=== PATIENT | female | born 1970 | race Two or more races ===

== ENCOUNTER 2017-08-28 14:17 | Emergency (ER) | payer MEDICAID ==
[~2017-08-28] VITALS: Ht 162.6 cm; Wt 77.1 kg
[2017-08-28 14:35] VITALS: BP 128/66
[2017-08-28] MEDS ORDERED: Meclizine 25mg tab ORAL PRN (14:45)
--- NOTE | 2017-08-28 16:25 | Emergency Room Report ---
History of Present Illness General Chief Complaint: Vomiting Source: EMS Present Illness HPI 47-year-old female presents to the emergency department complaining of dizziness she describes it as the room spinning around her and causing her to throw up and feel nauseous. Patient denies unilateral weakness, fatigue she reports past medical history of hypothyroid as well as autoimmune liver disease. Patient denies abdominal pain or tenderness. She reports that if she lays back down her symptoms return. Sitting up in 1 position helps to relieve her symptoms however she states she does feel nauseous. Patient has been having nausea vomiting since yesterday she denies diarrhea or constipation. She denies fevers, chills, trauma or fall. Patient denies neck pain or stiffness. Denies CP, Palpitations, LOC, AMS, Changes in Vision, paresthesias, or a sudden severe headache. Allergies: Coded Allergies: No Known Allergies (Unverified , 08/28/17) Patient History Past Medical History: see triage record, other - thyroid disorder, Past Surgical History: none Pertinent Family History: none Now: No Reviewed Nursing Documentation: PMH: Agreed; PSxH: Agreed Nursing Documentation-PMH Past Medical History: No Stated History Review of Systems All Other Systems: negative except mentioned in HPI Physical Exam Vital Signs Date Time Temp Pulse Resp B/P (MAP) Pulse Ox O2 Delivery O2 Flow Rate FiO2 08/28/17 14:13 97.2 80 18 128/66 98 Room Air 97.2 Sp02 EP Interpretation: reviewed, normal General Appearance: no apparent distress, alert, GCS 15, non-toxic Head: normocephalic, atraumatic Eyes: bilateral eye normal inspection, bilateral eye PERRL ENT: hearing grossly normal, normal voice Neck: full range of motion Respiratory: chest non-tender, lungs clear, normal breath sounds, speaking full sentences Cardiovascular #1: regular rate, rhythm Gastrointestinal: normal bowel sounds, non tender, soft, no guarding Musculoskeletal: back normal, gait/station normal, normal range of motion, non- tender Neurologic: alert, oriented x3, responsive, motor strength/tone normal, sensory intact, cerebellar normal, normal gait, speech normal, other - [place]- Hallpike maneuver instigated vomiting no nystagmus was noted, not ataxic, negative Romberg. Dilatory with steady gait no signs of cerebellar dysfunction. Able to perform heel to toe walking without assistance and no signs of imbalance., grossly normal Psychiatric: judgement/insight normal Skin: normal color, no rash, warm/dry, well hydrated Medical Decision Making PA Attestation Dr. Rodriguez is my supervising Physician whom patient management has been discussed with. Diagnostic Impression: Primary Impression: Vertigo ER Course 47-year-old female presents to the emergency department complaining of dizziness she describes it as the room spinning around her and causing her to throw up and feel nauseous. Patient denies unilateral weakness, fatigue she reports past medical history of hypothyroid as well as autoimmune liver disease. Patient denies abdominal pain or tenderness. She reports that if she lays back down her symptoms return. Sitting up in 1 position helps to relieve her symptoms however she states she does feel nauseous. Patient has been having nausea vomiting since yesterday she denies diarrhea or constipation. She denies fevers, chills, trauma or fall. Patient denies neck pain or stiffness. Denies CP, Palpitations, LOC, AMS, Changes in Vision, paresthesias, or a sudden severe headache. Ddx considered but are not limited to Mnire's, BPPV, labrinitis, cerebellar stroke, hypovolemia, cardiac cause. Vital signs: are WNL, pt. is afebrile H&PE are most consistent with : [place]-Hallpike maneuver instigated vomiting no nystagmus was noted, not ataxic, negative Romberg. Dilatory with steady gait no signs of cerebellar dysfunction. ORDERS: none at this time, neurologically no acute pathology suspected. ED INTERVENTIONS: -Meclizine PO -Zofran IV -1 Liter NS -Patient is able to ambulate she is able to tolerate oral fluids she states she is feeling better. Discussed with this patient she'll be discharged home with conservative treatment for her symptoms and that she needs to follow-up with her primary care provider. This patient was given strict ER return precautions for worsening or new symptoms. Both patient and her son who is bedside verbalized their understanding and agreement with this treatment plan. DISCHARGE: At this time pt. is stable for d/c to home. Will provide printed patient care instructions, and any necessary prescriptions. Care plan and follow up instructions have been discussed with the patient prior to discharge. Last Vital Signs Date Time Temp Pulse Resp B/P (MAP) Pulse Ox O2 Delivery O2 Flow Rate FiO2 08/28/17 14:35 97.2 18 128/66 98 Room Air 97.2 08/28/17 14:13 80 Disposition: HOME, SELF-CARE Condition: Stable Scripts Ondansetron* (ZOFRAN*) 4 Mg Tablet 4 MG ORAL Q6H PRN for Nausea & Vomiting, #9 TAB Prov: Mariya Ingram 08/28/17 Meclizine Hcl* (MECLIZINE*) 25 Mg Tablet 25 MG ORAL THREE TIMES A DAY, #21 TAB Prov: Mariya Ingram 08/28/17 Patient Instructions: Vertigo Additional Instructions: Take medications as directed. Follow up with a Primary Care Provider in 3-5 days, even if your symptoms have resolved. --Please review list of primary care clinics, if you do not already have a primary care provider Return sooner to ED if new symptoms occur, or current symptoms become worse. Do not drink alcohol, drive, or operate heavy machinery while taking Meclizine/ Antivert as this may cause drowsiness. - Please note that this Emergency Department Report was dictated using [employer] technology software, occasionally this can lead to erroneous entry secondary to interpretation by the dictation equipment. Mariya Ingram Aug 28, 2017 16:25
[2017-08-28] MEDS ORDERED: MECLIZINE HCL25 MG ORAL (16:27)
[2017-08-28] MEDS ORDERED: ZOFRAN4 M3 ORAL (16:27)
[2017-08-28 17:45] VITALS: BP 122/77
== END 2017-08-28 17:45 | disposition home or self-care (01) ==
LOC: EDBD 14:17 → EMR 15:25
DX: R42 Dizziness and giddiness (principal); R11.2 Nausea with vomiting, unspecified
CPT/HCPCS: 96360; 96374; 96375; 99284; J2405